=== PATIENT | female | born 1970 | race Caucasian/White ===

== ENCOUNTER 2018-12-10 13:29 | Emergency (ER) | payer BC, OTHER ==
[2018-12-10] MEDS ORDERED: Ketorolac Tromethamine 30 MG/ML VIAL ONE (14:04)
[2018-12-10 14:15] LABS: Bilirubin Negative (Negative); Blood, Urine Negative (Negative); Clarity Clear (Clear); Glucose, Urine (Dipstick) Negative (Negative); Leukocyte Negative (Negative); Nitrite Negative (Negative); Protein, Urine (Dipstick) Negative (Neg-Trace); Specific Gravity, Urine 1.015 (1.005-1.030); Urobilinogen 0.2 mg/dL (0.2-1.0)
--- NOTE | 2018-12-10 14:57 | RAD ---
FRadiograph lumbar spine 2 views: HISTORY: Trauma FINDINGS: Scoliosis. Vertebral body heights are maintained. No spondylolisthesis. IMPRESSION: 1. No evidence of acute compression fracture. 2. Scoliosis
== END 2018-12-10 14:45 | disposition home or self-care (01) ==
LOC: SCSER 13:29
DX: M54.5 Low back pain (principal); V89.2XXA Person injured in unspecified motor-vehicle accident, traffic, initial encounter
CPT/HCPCS: 72100; 81003; 96372; J1885